=== PATIENT | male | born 1980 | race Caucasian/White ===

== ENCOUNTER 2022-11-28 10:32 | Emergency (ER) | payer SELFPAY ==
[2022-11-28 10:43] VITALS: BP 127/78; PULSE 96; RESP 16; TEMP 36.9; O2SAT 99; BMI 29.8
--- NOTE | 2022-11-28 12:03 | ED.NURSE ---
Spoke with nurse at [facility] to get additional info about pt visit.
[2022-11-28 12:33] LABS: Amphetamine Screen Urine Negative (Negative); Barbiturate Screen Urine Negative (Negative); Cannabinoid Screen Urine Negative (Negative); Cocaine Screen Urine Negative (Negative); Methadone Screen Urine Negative (Negative); Methamphetamines Screen Urine Negative (Negative); Opiate Screen Urine Negative (Negative); Oxycodone Screen Urine Negative (Negative); Phencyclidine Screen Urine Negative (Negative); Tricyclic Antidepressant Urine Negative (Negative)
[2022-11-28 12:42] LABS: Benzodiazepines Screen Urine POSITIVE (Negative)
--- NOTE | 2022-11-28 12:56 | ED_ITS ---
HPI - General Adult General Chief complaint: Unspecified Complaint, Adult Stated complaint: needs a tox screen Time Seen by Provider: 11/28/22 12:11 History of Present Illness HPI narrative: This 42-year-old is undergoing treatment for alcohol addiction. He was hospitalized about 10 days ago and discharged then because of alcohol withdrawal symptoms. He is now on treatment and was sent here because his urine drug screen returned positive for benzodiazepines. The patient denies using any medications since being discharged from the hospital and also states that he has not taken any alcohol. He states that he feels normal and does not have any symptoms of withdrawal and does not need any benzodiazepine medication. Related Data Home Medications Medication Instructions Recorded Confirmed melatonin PO 11/28/22 Allergies Allergy/AdvReac Type Severity Reaction Status Date / Time aspirin Allergy Severe Verified 11/28/22 10:50 Review of Systems Status of ROS: Reports: 10 or more systems reviewed and unremarkable except as noted in History and below Narrative: Constitutional: No fevers, no weight gain or loss. Eyes: No discharge. No vision changes. HENT: No congestion, no sore throat, no ear pain. Cardiovascular: No chest pain, no palpitations. Respiratory: No shortness of breath, no wheezes, no cough. Gastrointestinal: No abdominal pain, no vomiting, no diarrhea. Genitourinary: No dysuria, no hematuria. Musculoskeletal: Normal range of motion. Skin: No rashes, no pruritis. Neurological: No dizziness, weakness, sensory change, speech change. Endo/Heme/Allergies: No bruising or bleeding. No polydipsia. Pysch: no suicidality, no anxiety, no insomnia. All other systems reviewed and are negative. PFSH PFS Social History Smoking Status: Never smoker Do you use any of these nicotine containing products: None How often do you have a drink containing alcohol: never How often do you have six or more drinks on one occasion: Never AUDIT-C Alcohol total score: 0 Non-prescribed substance use: denies use Exam Narrative: Exam Narrative: Constitutional: Well-developed, well-nourished, no acute distress. HEENT: Normocephalic, atraumatic. Neck: Normal range of motion. Nontender. Supple. Heart: Intact distal pulses. Lungs: No chest discomfort. No wheezes, rhonchi, or rales. Abdomen: Nontender. Back: Normal range of motion. Extremities: Normal range of motion. No injury. Skin: Intact. No rash. Warm. No erythema or pallor. Neurologic: No altered sensation. No weakness. Alert and oriented. Psychiatric: No suicidality. No anxiety or depression. No insomnia. Nursing notes and vitals signs are reviewed. Const: Vital Signs, click to edit/add: Vital Signs - 24 hr 11/28/22 10:43 Temperature 98.5 F Pulse Rate [Pulse Oximeter] 96 Respiratory Rate 16 Blood Pressure [Ri ght Upper Arm] 127/78 Pulse Oximetry 99 Oxygen Delivery Me thod Room Air Course Vital Signs Vital signs: Initial Vital Signs Temperature 98.5 F 11/28/22 10:43 Temperature Source Temporal Artery Scan 11/28/22 10:43 Pulse Rate 96 11/28/22 10:43 Respiratory Rate 16 11/28/22 10:43 Blood Pressure 127/78 11/28/22 10:43 Blood Pressure Mean 94 11/28/22 10:43 Blood Pressure Position Sitting 11/28/22 10:43 Pulse Oximetry 99 11/28/22 10:43 Oxygen Delivery Method Room Air 11/28/22 10:43 Vital Signs Temperature 98.5 F 11/28/22 10:43 Pulse Rate 96 11/28/22 10:43 Respiratory Rate 16 11/28/22 10:43 Blood Pressure 127/78 11/28/22 10:43 Pulse Oximetry 99 11/28/22 10:43 Oxygen Delivery Method Room Air 11/28/22 10:43 Temperature 98.5 F 11/28/22 10:43 Pulse Rate 96 11/28/22 10:43 Respiratory Rate 16 11/28/22 10:43 Blood Pressure 127/78 11/28/22 10:43 Pulse Oximetry 99 11/28/22 10:43 Oxygen Delivery Method Room Air 11/28/22 10:43 Medical Decision Making MDM Narrative Medical decision making narrative: This patient is undergoing treatment for alcohol addiction and reports that he is following his plan and avoiding alcohol and any other medications. He arrives with normal vital signs. A urine drug screen at the treatment facility turned positive for benzodiazepine. He was sent here to verify this finding and receive a tapering dose ill of benzodiazepines if needed. Urine drug screen here does also turned positive for benzodiazepines but negative for everything else. The patient did receive diazepam which can stay positive in the urine for up to 15 days or more. This is the most likely explanation for the positive urine drug result. The patient denies using any medications. He had tears of rima upon hearing this news as he is very committed to his recovery. The nurse communicated with the treatment facility regarding these matters. He is okay to be discharged home to resume his current plans. Lab Data Labs: Lab Results 11/28/22 Range/Units 12:00 Urine Opiates Screen Negative (Negative) Ur Oxycodone Screen Negative (Negative) Urine Methadone Screen Negative (Negative) Ur Propoxyphene Screen Negative (Negative) Ur Barbiturates Screen Negative (Negative) U Tricyclic Antidepress Negative (Negative) Ur Phencyclidine Scrn Negative (Negative) Ur Amphetamines Screen Negative (Negative) U Methamphetamines Scrn Negative (Negative) U Benzodiazepines Scrn POSITIVE A* (Negative) Urine Cocaine Screen Negative (Negative) U Marijuana (THC) Screen Negative (Negative) Ur Drug Screen Comment See Note Discharge Plan Discharge Clinical Impression: No problem, feared complaint unfounded Patient Disposition: Home, Self-Care Condition: Stable Additional Instructions: Urine drug screen was positive for benzodiazepines. Valium (diazepam) can remain positive in urinalysis for 15 days or more. This likely explains a positive finding. No need for tapering course of benzodiazepines. No sign of withdrawal symptoms. Continue current plans. Prescriptions: No Action melatonin PO Follow Up/Referrals: Provider,Not a Local [Primary Care Provider] - Stand Alone Forms: [facility] Info Instructions
--- NOTE | 2022-11-28 13:03 | ED.NURSE ---
Report called to [facility] with discharge info.
== END 2022-11-28 13:20 | disposition home or self-care (01) ==
PROVIDERS: Emergency Provider Emergency Medicine Emergency Medical Services
DX: Z71.1 Person with feared health complaint in whom no diagnosis is made (principal)
CPT/HCPCS: 80306; 99282; 99283; 99284; T1013

== ENCOUNTER 2022-12-11 09:36 | Emergency (ER) | payer SELFPAY ==
[2022-12-11 09:48] VITALS: BP 130/83; PULSE 81; RESP 16; TEMP 36.4; O2SAT 97; BMI 32.0
[2022-12-11 10:41] LABS: Amphetamine Screen Urine Negative (Negative); Barbiturate Screen Urine Negative (Negative); Cannabinoid Screen Urine Negative (Negative); Cocaine Screen Urine Negative (Negative); Methadone Screen Urine Negative (Negative); Methamphetamines Screen Urine Negative (Negative); Opiate Screen Urine Negative (Negative); Oxycodone Screen Urine Negative (Negative); Phencyclidine Screen Urine Negative (Negative); Tricyclic Antidepressant Urine Negative (Negative)
[2022-12-11 10:48] LABS: Benzodiazepines Screen Urine POSITIVE (Negative)
--- NOTE | 2022-12-11 11:39 | ED.GENADULT ---
HPI - General Adult General Chief complaint: Unspecified Complaint, Adult Stated complaint: needs blood test Time Seen by Provider: 12/11/22 10:54 Source: patient Mode of arrival: ambulatory Limitations: language barrier History of Present Illness HPI narrative: 42-year-old male coming in today requesting a drug screen. Has no other concerns. Does need to be blood and urine. Related Data Home Medications Medication Instructions Recorded Confirmed melatonin PO 11/28/22 Allergies Allergy/AdvReac Type Severity Reaction Status Date / Time aspirin Allergy Severe shortness Verified 12/11/22 09:48 of breath PFSH PFSH Social History Smoking Status: Never smoker Do you use any of these nicotine containing products: None How often do you have a drink containing alcohol: never How often do you have six or more drinks on one occasion: Never AUDIT-C Alcohol total score: 0 Non-prescribed substance use: denies use Exam Narrative: Exam Narrative: Well-nourished well-developed patient in no acute distress. Alert and oriented. Answers questions appropriately. Mood and affect are appropriate. Thoughts are goal oriented and rational. No tangential or magical thinking noted. Patient speaks in full sentences without needing to catch their breath. HEENT: Normocephalic atraumatic. Pupils are equally round reactive to light. Extraocular muscles are intact. Conjunctivae are moist without any icterus noted. Moist mucous membranes. Skin: Well perfused without any obvious rashes. Const: Vital Signs, click to edit/add: Vital Signs - 24 hr 12/11/22 09:48 Temperature 97.5 F L Pulse Rate [Pulse Oximeter] 81 Respiratory Rate 16 Blood Pressure [Ri ght Upper Arm] 130/83 Pulse Oximetry 97 Oxygen Delivery Me thod Room Air Course Vital Signs Vital signs: Initial Vital Signs Temperature 97.5 F L 12/11/22 09:48 Temperature Source Temporal Artery Scan 12/11/22 09:48 Pulse Rate 81 12/11/22 09:48 Respiratory Rate 16 12/11/22 09:48 Blood Pressure 130/83 12/11/22 09:48 Blood Pressure Mean 98 12/11/22 09:48 Blood Pressure Position Sitting 12/11/22 09:48 Pulse Oximetry 97 12/11/22 09:48 Oxygen Delivery Method Room Air 12/11/22 09:48 Vital Signs Temperature 97.5 F L 12/11/22 09:48 Pulse Rate 81 12/11/22 09:48 Respiratory Rate 16 12/11/22 09:48 Blood Pressure 130/83 12/11/22 09:48 Pulse Oximetry 97 12/11/22 09:48 Oxygen Delivery Method Room Air 12/11/22 09:48 Temperature 97.5 F L 12/11/22 09:48 Pulse Rate 81 12/11/22 09:48 Respiratory Rate 16 12/11/22 09:48 Blood Pressure 130/83 12/11/22 09:48 Pulse Oximetry 97 12/11/22 09:48 Oxygen Delivery Method Room Air 12/11/22 09:48 Medical Decision Making MDM Narrative Medical decision making narrative: 42-year-old male requesting urine and blood drug screening today. Labs were drawn urine results were given to the patient, blood results are a send out and he will be called with those results. We did discuss that this would be more appropriately done in a clinic setting than in the ER. Lab Data Lab results reviewed: Yes I reviewed the patient's lab results Labs: Lab Results 12/11/22 Range/Units 10:25 Urine Opiates Screen Negative (Negative) Ur Oxycodone Screen Negative (Negative) Urine Methadone Screen Negative (Negative) Ur Propoxyphene Screen Negative (Negative) Ur Barbiturates Screen Negative (Negative) U Tricyclic Antidepress Negative (Negative) Ur Phencyclidine Scrn Negative (Negative) Ur Amphetamines Screen Negative (Negative) U Methamphetamines Scrn Negative (Negative) U Benzodiazepines Scrn POSITIVE A* (Negative) Urine Cocaine Screen Negative (Negative) U Marijuana (THC) Screen Negative (Negative) Ur Drug Screen Comment See Note Discharge Plan Discharge Clinical Impression: Encounter for drug screening Patient Disposition: Home, Self-Care Condition: Stable Additional Instructions: Blood drug screen will not be back for a few days. You will be called with these results. Prescriptions: No Action melatonin PO Hold Instructions: per patient not taking Follow Up/Referrals: Provider,Not a Local [Primary Care Provider] - Stand Alone Forms: [facility] Info Instructions
== END 2022-12-11 11:57 | disposition home or self-care (01) ==
LOC: ED 11:54
PROVIDERS: Emergency Provider Family Medicine
DX: Z71.51 Drug abuse counseling and surveillance of drug abuser (principal); Z04.89 Encounter for examination and observation for other specified reasons
CPT/HCPCS: 36415; 80306; 80323; 80326; 80329; 80334; 80337; 80338; 80341; 80344; 80346; 80356; 80357; 80358; 80359; 80360; 80361; 80363; 80365; 80366; 80368; 80370; 80372; 80373; 80377; 83992; 99282; 99283; T1013